=== PATIENT | female | born 1970 | race Caucasian/White ===

== ENCOUNTER 2016-09-20 21:23 | Emergency (ER) | payer BC ==
[2016-09-20] MEDS ORDERED: BACTRIM 160MG/800MG DS TAB As Ordered ONE (21:47)
--- NOTE | 2016-09-20 21:57 | EDDOCDS ---
Physician Documentation [facility] Name: Jaida Warren Age: 45 yrs Sex: Female : 1970 Arrival Date: 09/20/2016 Time: 21:23 Bed 5 Private MD: Tania Torrez Disposition: 09/20/16 21:48 Discharged to Home/Self Care. Impression: Phlebitis and thrombophlebitis, Poisoning by and adverse effect of heroin. - Condition is Stable. - Discharge Instructions: Cellulitis, Phlebitis. - Prescriptions for Bactrim DS 800- 160 mg Oral Tablet - take 2 tablet by ORAL route every 12 hours for 7 days; 28 tablet. - Medication Reconciliation, Local Pharmacy Hours form. - Follow up: Tania Torrez FNP; When: 2 - 3 days; Reason: Recheck today's complaints, Continuance of care. Follow up: Referral list, As provided by PFS; When: Call to arrange an appointment; Reason: Continuance of care. - Problem is an acute exacerbation. - Symptoms are unchanged. Historical: - Allergies: no known allergies; - Home Meds: 1. gabapentin 300 mg oral cap 1 cap 3 times per day doesn't know the last time she took them 2. Harvoni 90-400 mg oral tab 1 tab once daily pt just finished this medication - PMHx: Hepatitis C; IV drug user; - PSHx: none; - Social history: Smoking status: Patient uses tobacco products, current every day smoker. Patient uses IV drugs, heroin, No barriers to communication noted, The patient speaks fluent Tajik. - Family history: Not pertinent. - : The pt / caregiver states he / she is not on anticoagulants. Home medication list is obtained from the patient. - Exposure Risk Screening:: None identified. 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 6 in. (167.64 cm); Pain 0/10; 21:25 Body Mass Index 20.18 (56.70 kg, 167.64 cm) lr2 MDM: 21:42 Trimethoprim-Sulfamethoxazole 160 mg-800 mg (DS) 1 tabs PO once ordered. ke Administered Medications: 21:54 Drug: Trimethoprim-Sulfamethoxazole 1 tabs [sulfamethoxazole 800 mg-trimethoprim 160 mg af2 tablet (1 tabs)] Route: PO; Signatures: Rodrigue Menendez, LOANS OFFICER LOANS OFFICER Shanice Garrison,RN RN ms18 Naomi PichardoRN RN af2 MTDD
--- NOTE | 2016-09-20 21:57 | EDDOCDS ---
Nurse's Notes [facility] Name: Jaida Warren Age: 45 yrs Sex: Female : 1970 Arrival Date: 09/20/2016 Time: 21:23 Bed 5 Private MD: Tania Torrez Diagnosis: Phlebitis and thrombophlebitis;Poisoning by and adverse effect of heroin Presentation: 09/20 21:27 Presenting complaint: Patient states: that she has been clean from IV drugs for the ms18 last 10 years. Pt states that she used herion a few hours ago and is concerned that her track atkinson on her hands/wrists might be infected. Adult Sepsis Screening: The patient does not have new or worsening altered mentation. Patient's respiratory rate is less than 22. Systolic blood pressure is greater than 100. Patient has a qSOFA score of 0- Negative Sepsis Screen. Suicide/Homicide risk assessment- the patient denies having any suicidal and/or homicidal ideations and does not present with any other emotional, behavioral or mental health complaints. Status: Patient is not a client services vice president or dependent. Transition of care: patient was not received from another setting of care. 21:27 Acuity: DARBY Level 3 ms18 21:27 Method Of Arrival: Walkin/Carried/Asstd ms18 Triage Assessment: 21:32 General: Appears in no apparent distress, uncomfortable, Behavior is appropriate for ms18 age, cooperative, crying. Pain: Denies pain. HIV screening NA for this visit Offered previously. Neurological: Level of Consciousness is awake, alert, obeys commands, Oriented to person, place. Respiratory: Respiratory effort is even, Respiratory pattern is regular, symmetrical. Derm: Skin is pink, warm & dry. some redness and scratches noted to pt's wrist area. 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 gabapentin 300 mg oral cap 1 cap 3 times per day doesn't know the last time she took them 2. Harvoni 90-400 mg oral tab 1 tab once daily pt just finished this medication - PMHx: Hepatitis C; IV drug user; - PSHx: none; - Social history: Smoking status: Patient uses tobacco products, current every day smoker. Patient uses IV drugs, heroin, No barriers to communication noted, The patient speaks fluent Omani. - Family history: Not pertinent. - : The pt / caregiver states he / she is not on anticoagulants. Home medication list is obtained from the patient. - Exposure Risk Screening:: None identified. Screenin:55 Screening information is obtained from the patient. Fall risk: No risks identified. af2 Assistance ADL's: requires no assistance with activities of daily living. Abuse/DV Screen: The patient / caregiver reports he/she is: not in a situation that causes fear, pain or injury. Nutritional screening: No deficits noted. Advance Directives: Currently, there is no health care proxy. home support is adequate. Assessment: 21:54 General: Appears in no apparent distress, Behavior is cooperative. Pain: Denies pain. af2 Awake, alert, oriented. Skin warm and dry. Moves all extremities. Bilateral breath sounds clear. Respirations unlabored. Abdomen soft, non-tender. No apparent distress. The patient / caregiver is instructed regarding the plan of care and ED course. Physical assessment to be completed by PA/EDMD. 21:55 General: pt tearful,, family at bedside. educated regarding plan of care.. af2 Vital Signs: 21:25 BP 115 / 74; Pulse 83; Resp 18; Temp 97.3(O); Pulse Ox 100% on R/A; Weight 56.7 kg (R); lr2 Height 5 ft. 6 in. (167.64 cm); Pain 0/10; 21:25 Body Mass Index 20.18 (56.70 kg, 167.64 cm) lr2 Vitals: 21:25 Log In Time: September 20, 2016 at 21:23. lr2 ED Course: 21:25 Patient visited by Cynthia Caro. lr2 21:25 Patient moved to Waiting lr2 21:27 Tania Torrez FNP is Private Physician. lr2 21:28 Patient moved to Pre RCE lr2 21:29 Triage Initiated ms18 21:35 Naomi Pichardo,RN is Primary Nurse. ms18 21:35 Patient moved to 5 ms18 21:36 Rodrigue Menendez FNP is [facility]. ke 21:36 Patient visited by Rodrigue Menendez FNP. ke 21:36 Patient visited by Rodrigue Menendez FNP. ke 21:48 Torrez, Tania, FIELD REPRESENTATIVES DIRECTOR is Referral Physician. ke 21:49 Referral list, As provided by PFS is Referral Physician. ke 21:55 No IV's were initiated during this patient's visit. No procedures done that require af2 assistance. 21:56 Patient has correct armband on for positive identification. af2 Administered Medications: 21:54 Drug: Trimethoprim-Sulfamethoxazole 1 tabs [sulfamethoxazole 800 mg-trimethoprim 160 mg af2 tablet (1 tabs)] Route: PO; Order Results: There are currently no results for this order. Outcome: 21:48 Discharge ordered by Provider. ke 21:55 Discharge Assessment: Patient awake, alert and oriented x 3. No cognitive and/or af2 functional deficits noted. Patient verbalized understanding of disposition instructions. patient administered narcotics - no. The following High Risk Discharge criteria are identified: Yes, PFS note. Discharged to home ambulatory, with family. Condition: stable. Discharge instructions given to patient, Instructed on discharge instructions, follow up and referral plans. medication usage, Demonstrated understanding of instructions, medications, Pt was receptive of discharge instructions/ teaching. No special radiology studies were completed. Property :Personal belongings accompany Pt. 21:56 Patient left the ED. af2 Signatures: Rodrigue Menendez, Shanice AlexanderRN RN ms18 Naomi Pichardo RN RN af2 Cynthia Caro2 MTDD
--- NOTE | 2016-09-22 22:57 | EDDOCDS ---
Physician Documentation [facility] Name: Jaida Warren Age: 45 yrs Sex: Female : 1970 Arrival Date: 09/20/2016 Time: 21:23 Bed 5 Private MD: Tania Torrez Disposition: 09/20/16 21:48 Discharged to Home/Self Care. Impression: Phlebitis and thrombophlebitis, Poisoning by and adverse effect of heroin. - Condition is Stable. - Discharge Instructions: Cellulitis, Phlebitis. - Prescriptions for Bactrim DS 800- 160 mg Oral Tablet - take 2 tablet by ORAL route every 12 hours for 7 days; 28 tablet. - Medication Reconciliation, Local Pharmacy Hours form. - Follow up: Tania Torrez FNP; When: 2 - 3 days; Reason: Recheck today's complaints, Continuance of care. Follow up: Referral list, As provided by PFS; When: Call to arrange an appointment; Reason: Continuance of care. - Problem is an acute exacerbation. - Symptoms are unchanged. Historical: - Allergies: no known allergies; - Home Meds: 1. gabapentin 300 mg oral cap 1 cap 3 times per day doesn't know the last time she took them 2. Harvoni 90-400 mg oral tab 1 tab once daily pt just finished this medication - PMHx: Hepatitis C; IV drug user; - PSHx: none; - Social history: Smoking status: Patient uses tobacco products, current every day smoker. Patient uses IV drugs, heroin, No barriers to communication noted, The patient speaks fluent Portuguese. - Family history: Not pertinent. - : The pt / caregiver states he / she is not on anticoagulants. Home medication list is obtained from the patient. - Exposure Risk Screening:: None identified. 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 6 in. (167.64 cm); Pain 0/10; 21:25 Body Mass Index 20.18 (56.70 kg, 167.64 cm) lr2 MDM: 21:42 Trimethoprim-Sulfamethoxazole 160 mg-800 mg (DS) 1 tabs PO once ordered. lory 09/21 09:35 T-Sheet-- Draft Copy was scanned into [employer] and attached to record. [facility] Administered Medications: 09/20 21:54 Drug: Trimethoprim-Sulfamethoxazole 1 tabs [sulfamethoxazole 800 mg-trimethoprim 160 mg af2 tablet (1 tabs)] Route: PO; Signatures: Rodrigue Menendez FNP FNP ke Smith, Mallory, RN RN ms18 Naomi Pichardo RN RN af2 [facility] The chart was reviewed and I authenticate all verbal orders and agree with the evaluation and treatment provided.Attachments: 09/21 09:35 T-Sheet-- Draft Copy [facility] Chart Complete MTDD
--- NOTE | 2016-09-22 22:58 | EDDOCDS ---
Nurse's Notes [facility] Name: Jaida Warren Age: 45 yrs Sex: Female : 1970 Arrival Date: 09/20/2016 Time: 21:23 Bed 5 Private MD: Tania Torrez Diagnosis: Phlebitis and thrombophlebitis;Poisoning by and adverse effect of heroin Presentation: 09/20 21:27 Presenting complaint: Patient states: that she has been clean from IV drugs for the ms18 last 10 years. Pt states that she used herion a few hours ago and is concerned that her track atkinson on her hands/wrists might be infected. Adult Sepsis Screening: The patient does not have new or worsening altered mentation. Patient's respiratory rate is less than 22. Systolic blood pressure is greater than 100. Patient has a qSOFA score of 0- Negative Sepsis Screen. Suicide/Homicide risk assessment- the patient denies having any suicidal and/or homicidal ideations and does not present with any other emotional, behavioral or mental health complaints. Status: Patient is not a creative services director or dependent. Transition of care: patient was not received from another setting of care. 21:27 Acuity: DARBY Level 3 ms18 21:27 Method Of Arrival: Walkin/Carried/Asstd ms18 Triage Assessment: 21:32 General: Appears in no apparent distress, uncomfortable, Behavior is appropriate for ms18 age, cooperative, crying. Pain: Denies pain. HIV screening NA for this visit Offered previously. Neurological: Level of Consciousness is awake, alert, obeys commands, Oriented to person, place. Respiratory: Respiratory effort is even, Respiratory pattern is regular, symmetrical. Derm: Skin is pink, warm & dry. some redness and scratches noted to pt's wrist area. 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 gabapentin 300 mg oral cap 1 cap 3 times per day doesn't know the last time she took them 2. Harvoni 90-400 mg oral tab 1 tab once daily pt just finished this medication - PMHx: Hepatitis C; IV drug user; - PSHx: none; - Social history: Smoking status: Patient uses tobacco products, current every day smoker. Patient uses IV drugs, heroin, No barriers to communication noted, The patient speaks fluent Lebanese. - Family history: Not pertinent. - : The pt / caregiver states he / she is not on anticoagulants. Home medication list is obtained from the patient. - Exposure Risk Screening:: None identified. Screenin:55 Screening information is obtained from the patient. Fall risk: No risks identified. af2 Assistance ADL's: requires no assistance with activities of daily living. Abuse/DV Screen: The patient / caregiver reports he/she is: not in a situation that causes fear, pain or injury. Nutritional screening: No deficits noted. Advance Directives: Currently, there is no health care proxy. home support is adequate. Assessment: 21:54 General: Appears in no apparent distress, Behavior is cooperative. Pain: Denies pain. af2 Awake, alert, oriented. Skin warm and dry. Moves all extremities. Bilateral breath sounds clear. Respirations unlabored. Abdomen soft, non-tender. No apparent distress. The patient / caregiver is instructed regarding the plan of care and ED course. Physical assessment to be completed by PA/EDMD. 21:55 General: pt tearful,, family at bedside. educated regarding plan of care.. af2 Social Work Consult: 21:49 Social Work Note: Met pt at bedside regarding drug abuse. States she's been clean for ml4 opiates for the past 10 years, but relapsed over the past week due to relational problems with ex . Pt denies SI and HI, able to CFS. Referrals for outpt services was given at bedside and directed to follow up with [facility] for further tx. Vital Signs: 21:25 BP 115 / 74; Pulse 83; Resp 18; Temp 97.3(O); Pulse Ox 100% on R/A; Weight 56.7 kg (R); lr2 Height 5 ft. 6 in. (167.64 cm); Pain 0/10; 21:25 Body Mass Index 20.18 (56.70 kg, 167.64 cm) lr2 Vitals: 21:25 Log In Time: September 20, 2016 at 21:23. lr2 ED Course: 21:25 Patient visited by Cynthia Caro. lr2 21:25 Patient moved to Waiting lr2 21:27 Tania Torrez FNP is Private Physician. lr2 21:28 Patient moved to Pre RCE lr2 21:29 Triage Initiated ms18 21:35 Naomi Pichardo,RN is Primary Nurse. ms18 21:35 Patient moved to 5 ms18 21:36 Rodrigue Menendez FNP is [facility]. ke 21:36 Patient visited by Rodrigue Menendez FNP. ke 21:36 Patient visited by Rodrigue Menendez FNP. ke 21:48 Tania Torrez FNP is Referral Physician. ke 21:49 Referral list, As provided by PFS is Referral Physician. ke 21:55 No IV's were initiated during this patient's visit. No procedures done that require af2 assistance. 21:56 Patient has correct armband on for positive identification. af2 09/21 09:35 T-Sheet-- Draft Copy was scanned into [employer] and attached to record. [facility] Administered Medications: 09/20 21:54 Drug: Trimethoprim-Sulfamethoxazole 1 tabs [sulfamethoxazole 800 mg-trimethoprim 160 mg af2 tablet (1 tabs)] Route: PO; Order Results: There are currently no results for this order. Outcome: 21:48 Discharge ordered by Provider. ke 21:55 Discharge Assessment: Patient awake, alert and oriented x 3. No cognitive and/or af2 functional deficits noted. Patient verbalized understanding of disposition instructions. patient administered narcotics - no. The following High Risk Discharge criteria are identified: Yes, PFS note. Discharged to home ambulatory, with family. Condition: stable. Discharge instructions given to patient, Instructed on discharge instructions, follow up and referral plans. medication usage, Demonstrated understanding of instructions, medications, Pt was receptive of discharge instructions/ teaching. No special radiology studies were completed. Property :Personal belongings accompany Pt. 21:56 Patient left the ED. af2 Signatures: Rodrigue Menendez FNP FNP ke Treadwell, Michelle, PSA PSA ml4 Shanice Manriquez,GIOVANNA RN ms18 Naomi Pichardo,RN RN af2 [facility] lr2 Chart Complete MTDD
--- NOTE | 2016-09-22 22:58 | EDDOCDS ---
Physician Documentation [facility] Name: Jaida Warren Age: 45 yrs Sex: Female : 1970 Arrival Date: 09/20/2016 Time: 21:23 Bed 5 Private MD: Tania Torrez Disposition: 09/20/16 21:48 Discharged to Home/Self Care. Impression: Phlebitis and thrombophlebitis, Poisoning by and adverse effect of heroin. - Condition is Stable. - Discharge Instructions: Cellulitis, Phlebitis. - Prescriptions for Bactrim DS 800- 160 mg Oral Tablet - take 2 tablet by ORAL route every 12 hours for 7 days; 28 tablet. - Medication Reconciliation, Local Pharmacy Hours form. - Follow up: Tania Torrez FNP; When: 2 - 3 days; Reason: Recheck today's complaints, Continuance of care. Follow up: Referral list, As provided by PFS; When: Call to arrange an appointment; Reason: Continuance of care. - Problem is an acute exacerbation. - Symptoms are unchanged. Historical: - Allergies: no known allergies; - Home Meds: 1. gabapentin 300 mg oral cap 1 cap 3 times per day doesn't know the last time she took them 2. Harvoni 90-400 mg oral tab 1 tab once daily pt just finished this medication - PMHx: Hepatitis C; IV drug user; - PSHx: none; - Social history: Smoking status: Patient uses tobacco products, current every day smoker. Patient uses IV drugs, heroin, No barriers to communication noted, The patient speaks fluent French. - Family history: Not pertinent. - : The pt / caregiver states he / she is not on anticoagulants. Home medication list is obtained from the patient. - Exposure Risk Screening:: None identified. 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 6 in. (167.64 cm); Pain 0/10; 21:25 Body Mass Index 20.18 (56.70 kg, 167.64 cm) lr2 MDM: 21:42 Trimethoprim-Sulfamethoxazole 160 mg-800 mg (DS) 1 tabs PO once ordered. lory 09/21 09:35 T-Sheet-- Draft Copy was scanned into [employer] and attached to record. [facility] Administered Medications: 09/20 21:54 Drug: Trimethoprim-Sulfamethoxazole 1 tabs [sulfamethoxazole 800 mg-trimethoprim 160 mg af2 tablet (1 tabs)] Route: PO; Signatures: Rodrigue Menendez FNP FNP ke Smith, Mallory, RN RN ms18 Naomi Pichardo RN RN af2 [facility] The chart was reviewed and I authenticate all verbal orders and agree with the evaluation and treatment provided.Attachments: 09/21 09:35 T-Sheet-- Draft Copy [facility] Chart Complete MTDD
== END 2016-09-20 21:56 | disposition home or self-care (01) ==
LOC: M ED 21:23
DX: F41.9 Anxiety disorder, unspecified (principal); F11.120 Opioid abuse with intoxication, uncomplicated; I80.8 Phlebitis and thrombophlebitis of other sites; F17.210 Nicotine dependence, cigarettes, uncomplicated

== ENCOUNTER → 2017-04-06 | Outpatient (CLI) | payer OTHER ==
[2017-04-06 12:28] LABS: ALBUMIN 4.1 GM/DL (3.2-5.2); ALBUMIN/GLOBULIN RATIO 1.14 (1.00-1.93); ALKALINE PHOSPHATASE 67 U/L (45-117); ALT/SGPT 50 U/L (12-78); ANION GAP 8 MEQ/L (8-16); AST/SGOT 20 U/L (15-37); BILIRUBIN,TOTAL 0.3 MG/DL (0.2-1.0); BLOOD UREA NITROGEN 9 MG/DL (7-18); CARBON DIOXIDE LEVEL 28 MEQ/L (21-32); CHLORIDE LEVEL 106 MEQ/L (98-107); CREATININE FOR GFR 0.63 MG/DL (0.55-1.02); GLOMERULAR FILTRATION RATE > 60.0 (>58); GLUCOSE, FASTING 68 MG/DL (70-105); MEAN CORPUSCULAR HEMOGLOBIN 29.1 pg (27.0-33.0); MEAN CORPUSCULAR HGB CONC 32.1 g/dl (32.0-36.5); MEAN CORPUSCULAR VOLUME 90.6 fl (80.0-96.0); POTASSIUM SERUM 3.7 MEQ/L (3.5-5.1); RED CELL DISTRIBUTION WIDTH 14.7 % (11.5-14.5); SODIUM LEVEL 142 MEQ/L (136-145); TOTAL PROTEIN 7.7 GM/DL (6.4-8.2)
--- NOTE | 2017-04-06 13:10 | ECGEPIP ---
Stationary ECG Study [facility] Test Date: 2017-04-06 Pat Name: RYANNE SOTO Department: Room: - Gender: F Sander Wooden Pencils: ALIS : 1970 Requested By: Partha Acevedo Order Number: [id number] Reading MD: Ronn Peck Measurements Intervals [place] Rate: 67 P: 71 WV: 147 QRS: 62 QRSD: 84 T: 54 QT: 395 QTc: 417 Interpretive Statements SINUS RHYTHM previous tracing not on file Electronically Signed On 04-06-2017 13:10:48 EDT by Ronn Peck
== END ==
LOC: M LAB 10:52
PROVIDERS: ATTEND Family Medicine
DX: F11.20 Opioid dependence, uncomplicated (principal)

== ENCOUNTER → 2017-06-05 | Outpatient (REF) | payer OTHER ==
[2017-06-05 16:38] LABS: BASO % 0.7 % (0.0-1.0); EOS # 0.1 10^3/uL (0.0-0.50); EOS % 2.2 % (0.0-3.0); IMMATURE GRANULOCYTE % 0.2 % (0-0); LYMPH # 1.8 10^3/uL (1.5-4.5); LYMPH % 30.4 % (24.0-44.0); MEAN CORPUSCULAR HEMOGLOBIN 28.7 pg (27.0-33.0); MEAN CORPUSCULAR VOLUME 89.7 fl (80.0-96.0); MONO # 0.7 10^3/uL (0.0-0.8); MONO % 11.8 % (0.0-5.0); NEUTROPHILS # 3.2 10^3/uL (1.8-7.7); NEUTROPHILS % 54.7 % (36.0-66.0); PLATELET COUNT, AUTOMATED 223 10^3/uL (150-450); RED CELL DISTRIBUTION WIDTH 14.3 % (11.5-14.5); WHITE BLOOD COUNT 5.9 10^3/uL (4.0-10.0)
[2017-06-05 16:56] LABS: ALBUMIN 3.8 GM/DL (3.2-5.2); ALBUMIN/GLOBULIN RATIO 1.19 (1.00-1.93); ALKALINE PHOSPHATASE 60 U/L (45-117); ALT/SGPT 21 U/L (12-78); ANION GAP 6 MEQ/L (8-16); AST/SGOT 14 U/L (7-37); BILIRUBIN,TOTAL 0.3 MG/DL (0.2-1.0); BLOOD UREA NITROGEN 8 MG/DL (7-18); CALCIUM LEVEL 8.9 MG/DL (8.5-10.1); CARBON DIOXIDE LEVEL 29 MEQ/L (21-32); CHLORIDE LEVEL 105 MEQ/L (98-107); CREATININE FOR GFR 0.73 MG/DL (0.55-1.02); GLOMERULAR FILTRATION RATE > 60.0 (>58); GLUCOSE, FASTING 88 MG/DL (70-105); POTASSIUM SERUM 4.3 MEQ/L (3.5-5.1); SODIUM LEVEL 140 MEQ/L (136-145)
== END ==
LOC: M SFHCPLAZ 13:01
PROVIDERS: ATTEND Internal Medicine Infectious Disease
DX: B18.2 Chronic viral hepatitis C (principal)

== ENCOUNTER → 2017-07-02 | Outpatient (REF) | payer OTHER ==
[2017-07-02 17:21] LABS: MEAN CORPUSCULAR HEMOGLOBIN 29.2 pg (27.0-33.0); MEAN CORPUSCULAR HGB CONC 32.8 g/dl (32.0-36.5); MEAN CORPUSCULAR VOLUME 89.1 fl (80.0-96.0); PLATELET COUNT, AUTOMATED 224 10^3/uL (150-450); RED CELL DISTRIBUTION WIDTH 13.9 % (11.5-14.5); WHITE BLOOD COUNT 7.7 10^3/uL (4.0-10.0)
[2017-07-02 18:58] LABS: FOLATE 10.7 NG/ML; VITAMIN B12 LEVEL > 2000 PG/ML
[2017-07-02 19:02] LABS: ALBUMIN 3.8 GM/DL (3.2-5.2); ALBUMIN/GLOBULIN RATIO 1.12 (1.00-1.93); ALKALINE PHOSPHATASE 52 U/L (45-117); ALT/SGPT 28 U/L (12-78); ANION GAP 7 MEQ/L (8-16); AST/SGOT 22 U/L (7-37); BILIRUBIN,TOTAL 0.2 MG/DL (0.2-1.0); BLOOD UREA NITROGEN 9 MG/DL (7-18); CALCIUM LEVEL 8.7 MG/DL (8.5-10.1); CARBON DIOXIDE LEVEL 29 MEQ/L (21-32); CHLORIDE LEVEL 106 MEQ/L (98-107); FREE T4 0.99 NG/DL (0.76-1.46); GLOMERULAR FILTRATION RATE > 60.0 (>58); GLUCOSE, FASTING 67 MG/DL (70-105); POTASSIUM SERUM 4.3 MEQ/L (3.5-5.1); SODIUM LEVEL 142 MEQ/L (136-145); TOTAL PROTEIN 7.2 GM/DL (6.4-8.2)
== END ==
LOC: M SFHCPLAZ 16:01
PROVIDERS: ATTEND Nurse Practitioner Family
DX: E55.9 Vitamin D deficiency, unspecified (principal); R20.2 Paresthesia of skin

== ENCOUNTER → 2017-07-29 | Outpatient (REF) | payer OTHER ==
[2017-07-29 14:08] LABS: ALBUMIN 3.9 GM/DL (3.2-5.2); ALBUMIN/GLOBULIN RATIO 1.26 (1.00-1.93); ALKALINE PHOSPHATASE 54 U/L (45-117); ALT/SGPT 26 U/L (12-78); ANION GAP 6 MEQ/L (8-16); AST/SGOT 22 U/L (7-37); BILIRUBIN,TOTAL 0.4 MG/DL (0.2-1.0); BLOOD UREA NITROGEN 9 MG/DL (7-18); CALCIUM LEVEL 8.6 MG/DL (8.5-10.1); CARBON DIOXIDE LEVEL 29 MEQ/L (21-32); CHLORIDE LEVEL 105 MEQ/L (98-107); CREATININE FOR GFR 0.69 MG/DL (0.55-1.02); GLOMERULAR FILTRATION RATE > 60.0 (>58); GLUCOSE, FASTING 87 MG/DL (70-105); POTASSIUM SERUM 4.5 MEQ/L (3.5-5.1); SODIUM LEVEL 140 MEQ/L (136-145)
== END ==
LOC: M SFHCPLAZ 09:32
DX: M79.1 Myalgia (principal)
CPT/HCPCS: 36415

== ENCOUNTER → 2017-08-04 | Outpatient (REF) | payer OTHER | LOC: M SFHCPLAZ 09:59 | DX: B18.2 Chronic viral hepatitis C (principal) | CPT/HCPCS: 87902 ==

== ENCOUNTER → 2017-09-23 | Outpatient (REF) | payer OTHER | LOC: M SFHCPLAZ 16:33 | DX: Z12.4 Encounter for screening for malignant neoplasm of cervix (principal) ==

== ENCOUNTER → 2018-05-13 | Outpatient (CLI) | payer OTHER ==
[2018-05-13 16:56] LABS: HEMATOCRIT 37.6 % (36.0-47.0); HEMOGLOBIN 12.1 g/dl (12.0-15.5); MEAN CORPUSCULAR HEMOGLOBIN 29.6 pg (27.0-33.0); MEAN CORPUSCULAR HGB CONC 32.2 g/dl (32.0-36.5); MEAN CORPUSCULAR VOLUME 91.9 fl (80.0-96.0); PLATELET COUNT, AUTOMATED 188 10^3/uL (150-450); RED BLOOD COUNT 4.09 10^6/uL (4.00-5.40); RED CELL DISTRIBUTION WIDTH 13.6 % (11.5-14.5); WHITE BLOOD COUNT 5.1 10^3/uL (4.0-10.0)
[2018-05-13 17:25] LABS: ALBUMIN 3.6 GM/DL (3.2-5.2); ALBUMIN/GLOBULIN RATIO 1.09 (1.00-1.93); ALKALINE PHOSPHATASE 55 U/L (45-117); ALT/SGPT 33 U/L (12-78); ANION GAP 6 MEQ/L (8-16); AST/SGOT 18 U/L (7-37); BILIRUBIN,TOTAL 0.3 MG/DL (0.2-1.0); BLOOD UREA NITROGEN 12 MG/DL (7-18); CARBON DIOXIDE LEVEL 28 MEQ/L (21-32); CHLORIDE LEVEL 108 MEQ/L (98-107); GLOMERULAR FILTRATION RATE > 60.0 (>58); GLUCOSE, FASTING 97 MG/DL (70-100); POTASSIUM SERUM 3.9 MEQ/L (3.5-5.1); SODIUM LEVEL 142 MEQ/L (136-145); TOTAL PROTEIN 6.9 GM/DL (6.4-8.2)
[2018-05-13 18:19] LABS: CONTROL LINE HCG INT CTR LINE PRESENT; HCG, SERUM QUALITATIVE NEGATIVE (NEGATIVE)
[2018-05-13 18:48] LABS: CHLAMYDIA DNA AMPLIFICATION NEGATIVE (NEGATIVE); GC DNA AMPLIFICATION NEGATIVE (NEGATIVE)
[2018-05-14 10:56] LABS: HEPATITIS B SURFACE ANTIGEN NEGATIVE (NEGATIVE)
[2018-05-14 11:26] LABS: HIV 1&2 SCREEN CENTAUR NEGATIVE (NEGATIVE)
[2018-05-14 11:47] LABS: HEPATITIS C VIRUS ABY INDEX > 11.0 INDEX (<0.8)
[2018-05-18 12:24] LABS: HCV RNA NAA QUALITATIVE Positive (Negative)
== END ==
LOC: M LAB 16:02
DX: F11.20 Opioid dependence, uncomplicated (principal); R00.1 Bradycardia, unspecified; R94.31 Abnormal electrocardiogram [ECG] [EKG]
CPT/HCPCS: 93005

== ENCOUNTER → 2018-05-31 | Outpatient (REF) | payer OTHER ==
[2018-06-04 00:08] LABS: ALPHA 2-MACROGLOBULIN 247 mg/dL (110-276); ALT 40 IU/L (0-40); APOLIPOPROTEIN A-1 165 mg/dL (116-209); GGT 10 IU/L (0-60); HAPTOGLOBIN 171 mg/dL (34-200); HEPATITIS C QUANTITATION 16280 IU/mL (.); HEPATITIS C VIRUS GENOTYPE 1a (.); NECROINFLAM SCORE 0.17 (0.00-0.17); NECROINFLAMM GRADE A0-No activity (.); TOTAL BILIRUBIN 0.4 mg/dL (0.0-1.2)
== END ==
LOC: M SFHCPLAZ 10:02
DX: B18.2 Chronic viral hepatitis C (principal)

== ENCOUNTER → 2018-08-16 | Outpatient (REF) | payer OTHER ==
[2018-08-16 14:20] LABS: ALBUMIN 3.6 GM/DL (3.2-5.2); ALT/SGPT 20 U/L (12-78); BILIRUBIN,DIRECT < 0.1 MG/DL (0.0-0.2); BILIRUBIN,TOTAL 0.5 MG/DL (0.2-1.0)
[2018-08-18 00:06] LABS: HEPATITIS C QUANTITATION HCV Not Detected IU/mL (.)
== END ==
LOC: M SFHCPLAZ 12:09
PROVIDERS: ATTEND Internal Medicine Infectious Disease
DX: B18.2 Chronic viral hepatitis C (principal)

== ENCOUNTER → 2018-09-30 | Outpatient (REF) | payer OTHER | LOC: M SFHCPLAZ 09:52 | PROVIDERS: ATTEND Dermatology | DX: D48.5 Neoplasm of uncertain behavior of skin (principal) ==

== ENCOUNTER → 2018-10-26 | Outpatient (REF) | payer OTHER ==
[2018-10-26 13:23] LABS: APPEARANCE, URINE HAZY (CLEAR); BACTERIA, URINE AUTO 1+ (NEGATIVE); BILIRUBIN, URINE AUTO NEGATIVE (NEGATIVE); BLOOD, URINE BLOOD NEGATIVE (NEGATIVE); COLOR, URINE YELLOW (YELLOW); GLUCOSE, URINE (UA) AUTO NEGATIVE (NEGATIVE); KETONE, URINE AUTO NEGATIVE (NEGATIVE); LEUKOCYTE ESTERASE, URINE AUTO NEGATIVE (NEGATIVE); NITRITE, URINE AUTO NEGATIVE (NEGATIVE); PROTEIN, URINE AUTO NEGATIVE (NEGATIVE); RBC, URINE AUTO 1 /HPF (0-3); SPECIFIC GRAVITY URINE AUTO 1.005 (1.002-1.035); SQUAMOUS EPITHELIAL CELL UR AU 5 /HPF (0-6); UROBILINOGEN, URINE AUTO 0.2 mg/dL (0.0-2.0); WBC, URINE AUTO 0 /HPF (0-3)
== END ==
LOC: M SFHCPLAZ 11:42
PROVIDERS: ATTEND Nurse Practitioner Family
DX: R35.0 Frequency of micturition (principal)

== ENCOUNTER → 2018-11-08 | Outpatient (CLI) | payer OTHER ==
--- NOTE | 2018-11-08 15:19 | REPMRS ---
Patient History The patient states she had a clinical breast exam in 10/2018. Family history of breast cancer at age 50 or over in maternal grandmother, prostate cancer in father. No Hormone Replacement Therapy Digital Woman Screen Mammo: November 08, 2018 - Exam #: [id number] Bilateral CC and MLO view(s) were taken. Technologist: Vania Winslow, Technologist Prior study comparison: January 12, 2014, digital woman screen mammo performed at [facility]. February 08, 2010, bilateral bilat screen digital mammo performed at [facility]. FINDINGS: The breast tissue is heterogeneously dense. This may lower the sensitivity of mammography. There is a moderate amount of heterogeneously dense fibroglandular tissue which is fairly symmetric. There is no interval development of dominant mass, architectural distortion, or clustered microcalcification typical of malignancy. There has been no change in the appearance of the mammogram from the prior studies. 3-D tomosynthesis shows no additional findings. Assessment: BI-RADS/ACR category 1 mammogram. Negative Mammogram. Recommendation Routine screening mammogram of both breasts in 1 year (for women over age 40). This patient's Lifetime Breast Cancer RIsk is estimated at 13.3 %. This mammogram was interpreted with the aid of an FDA-approved computer-aided dectection system. Electronically Signed By: Ramón Yadav MD 11/08/18 [id number]
== END ==
LOC: M WHC 13:59
PROVIDERS: ATTEND Nurse Practitioner Family
DX: Z12.31 Encounter for screening mammogram for malignant neoplasm of breast (principal)

== ENCOUNTER → 2018-12-16 | Outpatient (REF) | payer OTHER ==
[2018-12-16 13:44] LABS: ALBUMIN 3.7 GM/DL (3.2-5.2); ALT/SGPT 24 U/L (12-78); BILIRUBIN,DIRECT < 0.1 MG/DL (0.0-0.2); BILIRUBIN,TOTAL 0.4 MG/DL (0.2-1.0); FREE T4 0.99 NG/DL (0.76-1.46); THYROID STIMULATING HORMONE 0.932 uIU/ML (0.358-3.740)
[2018-12-21 14:13] LABS: HEPATITIS C QUANTITATION HCV Not Detected IU/mL (.)
== END ==
LOC: M SFHCPLAZ 10:57
PROVIDERS: ATTEND Internal Medicine Infectious Disease
DX: B18.2 Chronic viral hepatitis C (principal); R63.5 Abnormal weight gain

== ENCOUNTER → 2019-01-10 | Outpatient (CLI) | payer OTHER ==
--- NOTE | 2019-01-10 13:34 | REP ---
LUMBAR SPINE SERIES: FIVE VIEWS. HISTORY: Left-sided lower back pain. FINDINGS: Five views of the lumbar spine show preserved vertebral body heights and normal alignment. There is degenerative disc narrowing at L2-3 with anterior spurring. Disc spaces are otherwise preserved. Pedicles and posterior elements are intact. There is no evidence of spondylolysis or spondylolisthesis. There is mild facet sclerosis bilaterally at L5-S1. Sacrum and SI joints are intact. IMPRESSION: Mild degenerative disc and osteoarthritic facet changes as noted above. Electronically Signed by Mike Yadav MD 01/10/2019 01:42 P
== END ==
LOC: M RAD 11:49
PROVIDERS: ATTEND Nurse Practitioner Family
DX: M51.36 Other intervertebral disc degeneration, lumbar region (principal); M51.37 Other intervertebral disc degeneration, lumbosacral region

== ENCOUNTER 2019-01-19 14:00 | Outpatient (RCR) | payer OTHER | END 2019-01-23 | LOC: M PT 14:00 | PROVIDERS: ATTEND Nurse Practitioner Family | DX: M54.42 Lumbago with sciatica, left side (principal) ==

== ENCOUNTER 2019-02-03 11:00 | Outpatient (RCR) | payer OTHER | END 2019-02-23 | LOC: M PT 11:00 | PROVIDERS: ATTEND Nurse Practitioner Family | DX: Z51.89 Encounter for other specified aftercare (principal); M54.42 Lumbago with sciatica, left side ==

== ENCOUNTER → 2020-05-05 | Outpatient (CLI) | payer OTHER | LOC: M LABSMTC 10:13 | PROVIDERS: ATTEND Family Medicine | DX: Z20.828 Contact with and (suspected) exposure to other viral communicable diseases (principal) | CPT/HCPCS: C9803; U0003 ==

== ENCOUNTER → 2020-08-23 | Outpatient (CLI) | payer SELFPAY | LOC: M LABSMTC 14:09 | PROVIDERS: ATTEND Pediatrics | DX: Z20.822 Contact with and (suspected) exposure to COVID-19 (principal) ==

== ENCOUNTER → 2020-12-13 | Outpatient (CLI) | payer SELFPAY | LOC: M LABSMTC 14:25 | PROVIDERS: ATTEND Pediatrics | DX: Z20.822 Contact with and (suspected) exposure to COVID-19 (principal) ==

== ENCOUNTER 2020-12-28 19:48 | Emergency (ER) | payer OTHER, SELFPAY ==
[~2020-12-28] VITALS: Ht 167.6 cm; Wt 57.9 kg
[2020-12-28] MEDS ORDERED: VENL75CA47 PO (20:02)
[2020-12-28] MEDS ORDERED: METH10TA2 PO (20:02)
[2020-12-28] MEDS ORDERED: BUPR300T92 PO (20:02)
[2020-12-28] MEDS ORDERED: ARIP1TAB10 PO (20:02)
[2020-12-28 20:51] LABS: HEMATOCRIT 38.7 % (36.0-47.0); HEMOGLOBIN 12.2 g/dl (12.0-15.5); MEAN CORPUSCULAR HEMOGLOBIN 26.6 pg (27.0-33.0); MEAN CORPUSCULAR HGB CONC 31.5 g/dl (32.0-36.5); MEAN CORPUSCULAR VOLUME 84.5 fl (80.0-96.0); PLATELET COUNT, AUTOMATED 334 10^3/uL (150-450); RED BLOOD COUNT 4.58 10^6/uL (4.00-5.40); WHITE BLOOD COUNT 6.9 10^3/uL (4.0-10.0)
[2020-12-28 21:06] LABS: AMPHETAMINES LEVEL URINE POSITIVE (NEGATIVE); BARBITURATES URINE NEGATIVE (NEGATIVE); BENZODIAZEPINES URINE NEGATIVE (NEGATIVE); CANNABINOIDS URINE NEGATIVE (NEGATIVE); COCAINE METABOLITE URINE NEGATIVE (NEGATIVE); METHADONE URINE POSITIVE (NEGATIVE); OPIATES URINE NEGATIVE (NEGATIVE); PHENCYCLIDINE URINE NEGATIVE (NEGATIVE)
[2020-12-28 21:25] LABS: ACETAMINOPHEN LEVEL < 2.0 UG/ML (10.0-30.0); ALT/SGPT 15 U/L (12-78); BILIRUBIN,DIRECT < 0.1 MG/DL (0.0-0.2); BILIRUBIN,TOTAL 0.3 MG/DL (0.2-1.0); BLOOD UREA NITROGEN 13 MG/DL (7-18); CALCIUM LEVEL 8.9 MG/DL (8.5-10.1); CARBON DIOXIDE LEVEL 27 MEQ/L (21-32); CHLORIDE LEVEL 108 MEQ/L (98-107); CREATININE FOR GFR 0.88 MG/DL (0.55-1.30); ETHYL ALCOHOL (ETHANOL) < 0.003 % (0.000-0.010); GLOMERULAR FILTRATION RATE > 60.0 (>51); GLUCOSE, FASTING 101 MG/DL (70-100); POTASSIUM SERUM 3.4 MEQ/L (3.5-5.1); SALICYLATE LEVEL < 1.7 MG/DL (5.0-30.0); SODIUM LEVEL 142 MEQ/L (136-145); THYROID STIMULATING HORMONE 0.741 uIU/ML (0.358-3.740)
[2020-12-29] MEDS ORDERED: MED REC COMMENT (00:02)
[2020-12-29 01:01] LABS: RSV AMPLIFICATION NEGATIVE (NEGATIVE)
[2020-12-29] MEDS ORDERED: LORazepam 2 MG TAB PO STA (02:06)
[2020-12-29] MEDS ORDERED: OLANZapine ORAL DISINTEGRATING TAB 5MG PO PRN (03:00)
[2020-12-29] MEDS ORDERED: MOM 30ML SUSPENSION UDC PO PRN (03:00)
[2020-12-29] MEDS ORDERED: MAALOX 30 ML SUSP *UDC PO PRN (03:00)
[2020-12-29] MEDS ORDERED: traZODone 50 MG TAB PO PRN (03:00)
[2020-12-29] MEDS ORDERED: NICOTINE 21MG/24HR 1 EA TRANSDERMAL TD SCH (09:00)
[2020-12-29] MEDS ORDERED: PALIPERIDONE 3 MG ER TAB (INVEGA) PO SCH (21:00)
[2020-12-30 01:42] VITALS: BP 198/100
[2020-12-30 01:47] VITALS: BP 100/98
[2020-12-30] MEDS ORDERED: buPROPion 100 MG TAB PO SCH (09:00)
[2020-12-30] MEDS ORDERED: buPROPion **XL** TABLET 150MG (WELLBUTRIN XL) PO SCH (09:00)
[2020-12-30] MEDS ORDERED: METHADONE 10 MG TAB (S0109) PO SCH (09:00)
[2020-12-30] MEDS ORDERED: VENLAFAXINE **XR** 75MG CAPSULE PO SCH (09:00)
[2020-12-30] MEDS ORDERED: VENLAFAXINE 37.5 MG TAB PO SCH (09:00)
[2020-12-30] MEDS ORDERED: ACETAMINOPHEN TAB 650MG DOSE (2X325MG) PO ONE (09:10)
[2020-12-30 10:25] VITALS: BP 111/72
--- NOTE | 2020-12-30 19:23 | ECGEPIP ---
[facility] - ED Test Date: 2020-12-29 Pat Name: RYANNE SOTO Department: Room: 0103 Gender: Female Show Girl: JARROD : 1970 Requested By: MILTON Marinelli Order Number: [id number] Reading MD: Krissy Mcgill Measurements Intervals [place] Rate: 59 P: 78 CT: 138 QRS: 65 QRSD: 72 T: 64 QT: 448 QTc: 443 Interpretive Statements Sinus bradycardia Nonspecific ST T wave changes Poor R wave progression cw 05/13/[address] T wave changes Electronically Signed on 12-30-2020 19:22:37 EDT by Krissy Mcgill
[2020-12-31] MEDS ORDERED: METH10SO PO (08:33)
== END 2020-12-30 10:28 ==
LOC: M ED 19:48 → M ED INP 19:49 → UNDOADMIN 19:49
DX: F15.10 Other stimulant abuse, uncomplicated (principal); F43.10 Post-traumatic stress disorder, unspecified; F29 Unspecified psychosis not due to a substance or known physiological condition; F17.200 Nicotine dependence, unspecified, uncomplicated

== ENCOUNTER → 2021-02-05 | Outpatient (CLI) | payer OTHER ==
[~2021-02-05] MED LIST: ARIP1TAB10 PO; BUPR300T92 PO; MED REC COMMENT; METH-1177 PO; METH10SO PO; VENL75CA47 PO
[2021-02-05 19:41] LABS: HEMATOCRIT 33.2 % (36.0-47.0); HEMOGLOBIN 10.4 g/dl (12.0-15.5); MEAN CORPUSCULAR HEMOGLOBIN 27.4 pg (27.0-33.0); MEAN CORPUSCULAR HGB CONC 31.3 g/dl (32.0-36.5); MEAN CORPUSCULAR VOLUME 87.6 fl (80.0-96.0); PLATELET COUNT, AUTOMATED 316 10^3/uL (150-450); RED BLOOD COUNT 3.79 10^6/uL (4.00-5.40)
[2021-02-05 20:01] LABS: ALBUMIN 3.5 GM/DL (3.2-5.2); ALT/SGPT 19 U/L (12-78); BILIRUBIN,TOTAL 0.2 MG/DL (0.2-1.0); BLOOD UREA NITROGEN 11 MG/DL (7-18); CALCIUM LEVEL 8.4 MG/DL (8.5-10.1); CARBON DIOXIDE LEVEL 30 MEQ/L (21-32); CHLORIDE LEVEL 106 MEQ/L (98-107); CREATININE FOR GFR 0.75 MG/DL (0.55-1.30); GLOMERULAR FILTRATION RATE > 60.0 (>51); GLUCOSE, FASTING 88 MG/DL (70-100); POTASSIUM SERUM 4.1 MEQ/L (3.5-5.1); SODIUM LEVEL 140 MEQ/L (136-145); TOTAL PROTEIN 6.9 GM/DL (6.4-8.2)
[2021-02-05 20:07] LABS: HCG, SERUM QUALITATIVE NEGATIVE (NEGATIVE)
[2021-02-05 20:23] LABS: HEPATITIS B SURFACE ANTIGEN NEGATIVE (NEGATIVE)
[2021-02-05 20:52] LABS: HIV 1&2 SCREEN CENTAUR NEGATIVE (NEGATIVE)
[2021-02-05 20:54] LABS: HEPATITIS C VIRUS ABY INDEX > 11.0 INDEX (<0.8)
[2021-02-05 21:49] LABS: GC DNA AMPLIFICATION NEGATIVE (NEGATIVE)
== END ==
LOC: M LAB 16:40
PROVIDERS: ATTEND Family Medicine
DX: F11.20 Opioid dependence, uncomplicated (principal); R94.31 Abnormal electrocardiogram [ECG] [EKG]

== ENCOUNTER → 2021-02-08 | Outpatient (REF) | payer OTHER ==
[~2021-02-08] MED LIST changes: -METH-1177 PO; +METH10TA2 PO
== END ==
LOC: M SFHCPLAZ 10:08
PROVIDERS: ATTEND Nurse Practitioner Family
DX: Z12.4 Encounter for screening for malignant neoplasm of cervix (principal)

== ENCOUNTER → 2022-01-28 | Outpatient (CLI) | payer OTHER ==
[~2022-01-28] MED LIST changes: +METH-1177 PO; -METH10TA2 PO
[2022-01-28 17:07] LABS: HEMATOCRIT 43.1 % (36.0-47.0); HEMOGLOBIN 13.7 g/dl (12.0-15.5); MEAN CORPUSCULAR HEMOGLOBIN 29.1 pg (27.0-33.0); MEAN CORPUSCULAR HGB CONC 31.8 g/dl (32.0-36.5); MEAN CORPUSCULAR VOLUME 91.7 fl (80.0-96.0); PLATELET COUNT, AUTOMATED 224 10^3/uL (150-450); WHITE BLOOD COUNT 7.6 10^3/uL (4.0-10.0)
[2022-01-28 17:26] LABS: ALBUMIN 4.1 GM/DL (3.2-5.2); ALT/SGPT 37 U/L (12-78); BILIRUBIN,TOTAL 0.3 MG/DL (0.2-1.0); BLOOD UREA NITROGEN 6 MG/DL (7-18); CALCIUM LEVEL 9.6 MG/DL (8.5-10.1); CARBON DIOXIDE LEVEL 26 MEQ/L (21-32); CHLORIDE LEVEL 107 MEQ/L (98-107); CREATININE FOR GFR 0.73 MG/DL (0.55-1.30); GLOMERULAR FILTRATION RATE > 60.0 (>51); GLUCOSE, FASTING 84 MG/DL (70-100); POTASSIUM SERUM 4.2 MEQ/L (3.5-5.1); SODIUM LEVEL 142 MEQ/L (136-145); TOTAL PROTEIN 7.2 GM/DL (6.4-8.2)
[2022-01-28 17:59] LABS: HEPATITIS B SURFACE ANTIGEN NEGATIVE (NEGATIVE)
[2022-01-28 18:01] LABS: GC DNA AMPLIFICATION NEGATIVE (NEGATIVE)
[2022-01-28 18:27] LABS: HEPATITIS C VIRUS ABY INDEX 0.2 INDEX (<0.8); HIV 1&2 SCREEN CENTAUR NEGATIVE (NEGATIVE)
== END ==
LOC: M WUC 13:54
PROVIDERS: ATTEND Family Medicine
DX: F11.20 Opioid dependence, uncomplicated (principal)

== ENCOUNTER → 2022-04-16 | Outpatient (CLI) | payer OTHER | LOC: M RAD 15:40 | PROVIDERS: ATTEND Family Medicine | DX: M79.89 Other specified soft tissue disorders (principal) ==

== ENCOUNTER → 2022-04-23 | Outpatient (CLI) | payer OTHER | LOC: M PLAIMG 15:11 | PROVIDERS: ATTEND Family Medicine | DX: M54.40 Lumbago with sciatica, unspecified side (principal) ==

== ENCOUNTER 2022-05-22 12:45 | Outpatient (RCR) | payer OTHER | END 2022-05-26 23:59 | disposition home or self-care (01) | LOC: M PT 12:45 | PROVIDERS: ATTEND Family Medicine | DX: M54.40 Lumbago with sciatica, unspecified side (principal); M51.37 Other intervertebral disc degeneration, lumbosacral region ==

== ENCOUNTER → 2022-05-22 | Outpatient (CLI) | payer OTHER ==
[2022-05-22 14:48] LABS: BASO # 0.1 10^3/uL (0.0-0.2); BASO % 0.6 % (0.0-1.0); EOS # 0.3 10^3/uL (0.0-0.5); EOS % 2.8 % (0.0-3.0); HEMATOCRIT 40.4 % (36.0-47.0); HEMOGLOBIN 12.7 g/dl (12.0-15.5); LYMPH % 23.1 % (24.0-44.0); MEAN CORPUSCULAR HEMOGLOBIN 28.3 pg (27.0-33.0); MEAN CORPUSCULAR HGB CONC 31.4 g/dl (32.0-36.5); MONO # 0.7 10^3/uL (0.0-0.8); MONO % 7.9 % (2.0-8.0); NEUTROPHILS # 5.7 10^3/uL (1.5-8.5); NEUTROPHILS % 65.3 % (36.0-66.0); PLATELET COUNT, AUTOMATED 257 10^3/uL (150-450); RED BLOOD COUNT 4.49 10^6/uL (4.00-5.40); WHITE BLOOD COUNT 8.8 10^3/uL (4.0-10.0)
[2022-05-22 15:22] LABS: ALBUMIN 3.8 GM/DL (3.2-5.2); ALT/SGPT 21 U/L (12-78); BILIRUBIN,DIRECT < 0.1 MG/DL (0.0-0.2); BILIRUBIN,TOTAL 0.3 MG/DL (0.2-1.0); TOTAL PROTEIN 7.1 GM/DL (6.4-8.2)
== END ==
LOC: M PLALAB 11:18
PROVIDERS: ATTEND Nurse Practitioner Family
DX: F11.21 Opioid dependence, in remission (principal)

== ENCOUNTER 2022-05-28 13:30 | Outpatient (RCR) | payer OTHER | END 2022-06-25 | LOC: M PT 13:30 | PROVIDERS: ATTEND Family Medicine | DX: M54.40 Lumbago with sciatica, unspecified side (principal); M51.37 Other intervertebral disc degeneration, lumbosacral region ==

== ENCOUNTER → 2022-08-21 | Outpatient (CLI) | payer OTHER | LOC: M PLARAD 15:34 | PROVIDERS: ATTEND Family Medicine | DX: M51.34 Other intervertebral disc degeneration, thoracic region (principal); M51.35 Other intervertebral disc degeneration, thoracolumbar region; M51.36 Other intervertebral disc degeneration, lumbar region; M51.37 Other intervertebral disc degeneration, lumbosacral region; M54.40 Lumbago with sciatica, unspecified side; R20.0 Anesthesia of skin; M43.16 Spondylolisthesis, lumbar region; M48.062 Spinal stenosis, lumbar region with neurogenic claudication ==

== ENCOUNTER → 2022-12-26 | Outpatient (CLI) | payer OTHER ==
[2022-12-26 14:10] LABS: BASO # 0.1 10^3/uL (0.0-0.2); BASO % 0.7 % (0.0-1.0); EOS # 0.2 10^3/uL (0.0-0.5); EOS % 2.5 % (0.0-3.0); HEMOGLOBIN 11.9 g/dl (12.0-15.5); LYMPH # 1.6 10^3/uL (1.5-5.0); MEAN CORPUSCULAR HEMOGLOBIN 27.9 pg (27.0-33.0); MEAN CORPUSCULAR HGB CONC 31.3 g/dl (32.0-36.5); MONO # 0.6 10^3/uL (0.0-0.8); MONO % 8.3 % (2.0-8.0); NEUTROPHILS # 4.8 10^3/uL (1.5-8.5); NEUTROPHILS % 66.4 % (36.0-66.0); PLATELET COUNT, AUTOMATED 341 10^3/uL (150-450); RED BLOOD COUNT 4.27 10^6/uL (4.00-5.40); WHITE BLOOD COUNT 7.2 10^3/uL (4.0-10.0)
[2022-12-26 14:23] LABS: ERYTHROCYTE SEDIMENTATION RATE 55 mm/hr (0-30)
[2022-12-26 14:48] LABS: ALBUMIN 3.8 G/DL (3.2-5.2); ALKALINE PHOSPHATASE 129 U/L (46-116); ALT/SGPT 17 U/L (7.0-40); AST/SGOT 15 U/L (<34); BILIRUBIN,TOTAL 0.2 MG/DL (0.3-1.2); BLOOD UREA NITROGEN 21 MG/DL (9-23); CALCIUM LEVEL 8.5 MG/DL (8.5-10.1); CARBON DIOXIDE LEVEL 26 MMOL/L (20-31); CHLORIDE LEVEL 105 MMOL/L (98-107); CHOLESTEROL LEVEL 202 MG/DL (<200); CHOLESTEROL RISK RATIO 3.81 (<5); CREATININE FOR GFR 0.89 MG/DL (0.55-1.30); GLOMERULAR FILTRATION RATE > 60.0 (>51); GLUCOSE, FASTING 97 MG/DL (60-100); HDL CHOLESTEROL 52.9 MG/DL (>40); LDL CHOLESTEROL 135.5 MG/DL (<100); NON-HDL-C 149.1 MG/DL; POTASSIUM SERUM 4.4 MMOL/L (3.5-5.1); SODIUM LEVEL 140 MMOL/L (136-145); TOTAL PROTEIN 7.2 G/DL (5.7-8.2); TRIGLYCERIDES LEVEL 68 MG/DL (<150)
[2022-12-29 21:07] LABS: HEPATITIS C QUANTITATION HCV Not Detected IU/mL (.)
== END ==
LOC: M PLALAB 11:31
PROVIDERS: ATTEND Family Medicine
DX: B18.2 Chronic viral hepatitis C (principal); R60.9 Edema, unspecified; S41.101A Unspecified open wound of right upper arm, initial encounter; Z13.6 Encounter for screening for cardiovascular disorders

== ENCOUNTER → 2023-05-05 | Outpatient (REF) | LOC: M PLAIMG 14:03 | PROVIDERS: ATTEND Internal Medicine | DX: R52 Pain, unspecified (principal) ==

== ENCOUNTER → 2023-05-06 | Outpatient (CLI) | payer OTHER | LOC: M WHC 15:53 | PROVIDERS: ATTEND Family Medicine | DX: Z12.31 Encounter for screening mammogram for malignant neoplasm of breast (principal) ==

== ENCOUNTER → 2023-09-08 | Outpatient (CLI) | payer OTHER ==
[2023-09-08 18:14] LABS: HEMATOCRIT 37.9 % (36.0-47.0); HEMOGLOBIN 11.8 g/dl (12.0-15.5); MEAN CORPUSCULAR HEMOGLOBIN 27.9 pg (27.0-33.0); MEAN CORPUSCULAR HGB CONC 31.1 g/dl (32.0-36.5); MEAN CORPUSCULAR VOLUME 89.6 fl (80.0-96.0); PLATELET COUNT, AUTOMATED 272 10^3/uL (150-450); RED BLOOD COUNT 4.23 10^6/uL (4.00-5.40); WHITE BLOOD COUNT 5.8 10^3/uL (4.0-10.0)
[2023-09-08 18:44] LABS: ALBUMIN 3.6 G/DL (3.2-5.2); ALKALINE PHOSPHATASE 138 U/L (46-116); ALT/SGPT 39 U/L (7.0-40); AST/SGOT 15 U/L (<34); BILIRUBIN,TOTAL 0.2 MG/DL (0.3-1.2); BLOOD UREA NITROGEN 12 MG/DL (9-23); CALCIUM LEVEL 8.9 MG/DL (8.5-10.1); CARBON DIOXIDE LEVEL 28 MMOL/L (20-31); CHLORIDE LEVEL 107 MMOL/L (98-107); CREATININE FOR GFR 0.78 MG/DL (0.55-1.30); GLOMERULAR FILTRATION RATE > 60.0 (>51); GLUCOSE, FASTING 86 MG/DL (60-100); POTASSIUM SERUM 4.2 MMOL/L (3.5-5.1); SODIUM LEVEL 138 MMOL/L (136-145)
[2023-09-08 18:47] LABS: HCG, SERUM QUALITATIVE NEGATIVE (NEGATIVE)
[2023-09-08 19:05] LABS: HIV 1&2 SCREEN NEGATIVE (NEGATIVE)
[2023-09-08 19:17] LABS: HEPATITIS C VIRUS ABY INDEX > 11.00 INDEX (<0.8)
[2023-09-08 19:39] LABS: CHLAMYDIA DNA AMPLIFICATION NEGATIVE (NEGATIVE); GC DNA AMPLIFICATION NEGATIVE (NEGATIVE)
== END ==
LOC: M PLALAB 15:04
PROVIDERS: ATTEND Family Medicine
DX: F11.20 Opioid dependence, uncomplicated (principal)

== ENCOUNTER → 2024-04-21 | Outpatient (CLI) | payer OTHER ==
[~2024-04-21] MED LIST changes: +ATOM60CA7 PO; +BUPR-597 PO; -BUPR300T92 PO; +CLEAPOW10 PO; +DOCU100C16 PO; +ESTR0.5T3 PO; +FAMO1TAB11 PO; +FAMO20TA5 PO; +GABA-1635 PO; +HYDR-3363 PO; +LEXA1TAB2 PO; +METH-1165 PO; +METH10CO PO; +NAPR-885 PO; +PROG1CAP8 PO; +SENN-187 PO
== END ==
LOC: M RAD 16:43
PROVIDERS: ATTEND Family Medicine
DX: Z12.2 Encounter for screening for malignant neoplasm of respiratory organs (principal); F17.210 Nicotine dependence, cigarettes, uncomplicated

== ENCOUNTER → 2024-04-26 | Day surgery (SDC) | payer OTHER ==
[~2024-04-26] VITALS: Ht 167.6 cm; Wt 68.0 kg
[~2024-04-26] MED LIST changes: +LIDOCAINE 2% 100MG/5ML SDV (FOR ANES.) As Ordered ONE; +NS 1,000 ML IV ONE; +propofoL 200 MG/20 ML VIAL As Ordered ONE
== END | disposition home or self-care (01) ==
LOC: M OPP 08:07
PROVIDERS: ATTEND Surgery
DX: R19.5 Other fecal abnormalities (principal); Z53.8 Procedure and treatment not carried out for other reasons

== ENCOUNTER 2024-06-08 08:50 | Day surgery (SDC) | payer OTHER ==
[~2024-06-08] VITALS: Ht 167.6 cm; Wt 68.9 kg
[~2024-06-08 08:50] MED LIST changes: +AMPH1CAP14 PO; +ATOM40CA16 PO; -LIDOCAINE 2% 100MG/5ML SDV (FOR ANES.) As Ordered ONE; -NS 1,000 ML IV ONE
[2024-06-08 13:11] VITALS: BP 99/55; O2SAT 98
== END 2024-06-08 13:16 | disposition home or self-care (01) ==
LOC: M OPP 08:50
PROVIDERS: ATTEND Surgery
DX: R19.5 Other fecal abnormalities (principal); K59.09 Other constipation; F17.210 Nicotine dependence, cigarettes, uncomplicated; Z79.899 Other long term (current) drug therapy; F32.A Depression, unspecified; F41.9 Anxiety disorder, unspecified; F43.10 Post-traumatic stress disorder, unspecified; Z88.6 Allergy status to analgesic agent

== ENCOUNTER → 2024-10-03 | Outpatient (CLI) | payer MEDICARE, OTHER ==
[~2024-10-03] MED LIST changes: +AMPH1CAP5 PO; +ATOM40CA9 PO; +NAPR-849 PO; +OLAN1TAB20 PO; +PROP10TA56 PO; -propofoL 200 MG/20 ML VIAL As Ordered ONE
== END ==
LOC: M RAD 16:44
PROVIDERS: ATTEND Family Medicine
DX: Z12.2 Encounter for screening for malignant neoplasm of respiratory organs (principal); F17.210 Nicotine dependence, cigarettes, uncomplicated

== ENCOUNTER → 2024-10-19 | Outpatient (CLI) | payer MEDICARE, OTHER | LOC: M RAD 12:55 | PROVIDERS: ATTEND Neurological Surgery | DX: M48.062 Spinal stenosis, lumbar region with neurogenic claudication (principal) ==

== ENCOUNTER → 2024-12-15 | Outpatient (CLI) | payer MEDICARE, OTHER ==
[~2024-12-15] MED LIST changes: -BUPR-597 PO; +BUPR-766 PO
[2024-12-15 14:14] LABS: HEMATOCRIT 36.9 % (36.0-47.0); HEMOGLOBIN 11.8 g/dl (12.0-15.5); MEAN CORPUSCULAR HEMOGLOBIN 28.6 pg (27.0-33.0); MEAN CORPUSCULAR VOLUME 89.3 fl (80.0-96.0); PLATELET COUNT, AUTOMATED 294 10^3/uL (150-450); RED BLOOD COUNT 4.13 10^6/uL (4.00-5.40); WHITE BLOOD COUNT 6.5 10^3/uL (4.0-10.0)
[2024-12-15 14:24] LABS: ALBUMIN 4.1 G/DL (3.2-5.2); ALKALINE PHOSPHATASE 99 U/L (35-104); ALT/SGPT 23 U/L (7.0-40); AST/SGOT 19 U/L (<34); BILIRUBIN,TOTAL 0.3 MG/DL (0.3-1.2); BLOOD UREA NITROGEN 16 MG/DL (9-23); CALCIUM LEVEL 9.2 MG/DL (8.5-10.1); CARBON DIOXIDE LEVEL 30 MMOL/L (20-31); CHLORIDE LEVEL 105 MMOL/L (98-107); CREATININE FOR GFR 0.75 MG/DL (0.55-1.30); GLOMERULAR FILTRATION RATE > 90.0 (>51); GLUCOSE, FASTING 81 MG/DL (60-100); POTASSIUM SERUM 3.9 MMOL/L (3.5-5.1); SODIUM LEVEL 140 MMOL/L (136-145); TOTAL PROTEIN 7.2 G/DL (5.7-8.2)
[2024-12-15 14:27] LABS: HCG, SERUM QUALITATIVE NEGATIVE (NEGATIVE)
[2024-12-15 14:37] LABS: HEPATITIS B SURFACE ANTIGEN NEGATIVE (NEGATIVE)
[2024-12-15 14:50] LABS: HIV 1&2 SCREEN NEGATIVE (NEGATIVE)
[2024-12-15 15:03] LABS: HEPATITIS C VIRUS ABY INDEX > 11.00 INDEX (<0.8)
[2024-12-15 15:40] LABS: Trichomonas vaginalis (AMP) NOT DETECTED (NEGATIVE)
[2024-12-15 16:04] LABS: GC DNA AMPLIFICATION NEGATIVE (NEGATIVE)
[2024-12-18 03:42] LABS: HCV RNA QUANTITATION <15 NOT DETECTED IU/mL (NOT DETECTED); HCV RNA log10 <1.18 NOT DETECTED Log IU/mL (NOT DETECTED)
== END ==
LOC: M LAB 12:48
PROVIDERS: ATTEND Family Medicine
DX: F11.20 Opioid dependence, uncomplicated (principal); Z11.3 Encounter for screening for infections with a predominantly sexual mode of transmission; Z72.89 Other problems related to lifestyle; Z11.59 Encounter for screening for other viral diseases

== ENCOUNTER → 2025-02-17 | Outpatient (CLI) | payer MEDICARE | LOC: M RAD 07:29 | PROVIDERS: ATTEND Neurological Surgery | DX: G95.9 Disease of spinal cord, unspecified (principal) ==

== ENCOUNTER → 2025-03-28 | Outpatient (CLI) | payer MEDICARE, OTHER ==
[2025-03-28 17:05] LABS: INR 0.96
[2025-03-28 18:38] LABS: CALCIUM LEVEL 9.7 MG/DL (8.5-10.1); CARBON DIOXIDE LEVEL 27.0 MMOL/L (20-31); CHLORIDE LEVEL 105.0 MMOL/L (98-107); CREATININE FOR GFR 0.79 MG/DL (0.55-1.30); GLOMERULAR FILTRATION RATE 88.3 (>51); POTASSIUM SERUM 4.2 MMOL/L (3.5-5.1); SODIUM LEVEL 142.0 MMOL/L (136-145)
[2025-03-28 18:41] LABS: PLATELET COUNT, AUTOMATED 305 10^3/uL (150-450)
[2025-03-28 18:55] LABS: ESTIMATED AVERAGE GLUCOSE 114.0 MG/DL (60-110)
== END ==
LOC: M PLALAB 14:48
DX: Z01.818 Encounter for other preprocedural examination (principal); Z79.899 Other long term (current) drug therapy

== ENCOUNTER → 2025-03-28 | Outpatient (REF) | payer OTHER, MEDICARE | LOC: M SFHCPLAZ 10:38 | PROVIDERS: ATTEND Family Medicine | DX: Z01.818 Encounter for other preprocedural examination (principal) ==